=== PATIENT | male | born 1935 | race Caucasian/White ===

== ENCOUNTER 2017-04-07 19:53 | Inpatient (IN) | payer OTHER, BC ==
[~2017-04-07] VITALS: Ht 172.7 cm; Wt 78.2 kg
--- NOTE | ~2017-04-07 | HC ---
[facility] [place] [address] CONSULTATION Name: KHLOE RIZVI Rhett Room #: 447-P [facility] IN ..#: [id number] Admission: 04/07/17 Attend Phys: Alexander Barton MD Discharge: Date of : 35 Report #: [id number] THIS REPORT FOR: //name// CC: Maryam Barton REASON FOR CONSULTATION: I was asked to evaluate concerning tick exposure and possible infection. HISTORY OF PRESENT ILLNESS: The patient is an 81-year-old admitted on 04/07/2017 with the acute onset of imbalance, blurred vision on the right eye and malaise. This lasted about 30 minutes. Resolved by the time he went to the Emergency Room. In addition, he had some garbled speech. I was discussing this with nursing staff today and noted that yesterday, he had cleared and he was neurologically intact. This morning, had more symptoms with vertigo with unsteadiness. No definite vertigo. He has diplopia. He had tick exposure within the last 10 days. Pulled off a what he describes as a dog tick 6 days ago. He has had no pain or swelling in the scrotal region where the tick was implanted. He stated it came off very easy and was not even sure that it had implanted. He denied any headache. He does have mild photophobia. No pharyngitis symptoms. No rash. No adenopathy. No cough or sputum production. No chest pain. Denies nausea, vomiting, dysuria or frequency. 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 His radiation was for prostate cancer. His travel [place] 2 [place] ago having returned last week. PAST MEDICAL HISTORY: Hypertension, hyperlipidemia, anxiety disorder, insomnia, prostate cancer, radiation treatment. ALLERGIES: None known. MEDICATIONS: As noted on his MAR, was started on amoxicillin today. FAMILY HISTORY: Noncontributory. 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 REVIEW OF SYSTEMS: Noted above. PHYSICAL EXAMINATION: VITAL SIGNS: He is afebrile, hemodynamically stable. GENERAL: He is alert and cooperative, in no acute distress. SKIN: Unremarkable. LYMPHATIC: Unremarkable. EYES: Disconjugate with right eye. Pupils are equal, round and reactive to light. [address] [address] CONSULTATION Name: KHLOE RIZVI Room #: 447-P [facility] IN .R.#: [id number] Admission: 04/07/17 Attend Phys: Alexander Barton MD Discharge: Date of : 35 Report #: [id number] MOUTH: Unremarkable. NECK: Supple. LUNGS: Clear. HEART: Regular, no murmur. ABDOMEN: Soft, nontender, no hepatosplenomegaly or mass. EXTREMITIES: Unremarkable. The patient was in bed but was able to sit up without difficulty. Strength was normal. I did not get the patient up to walk. LABORATORY STUDIES: MRI scan showed deep white matter changes consistent with ischemic disease, ethmoid sinus disease. Echocardiogram was unremarkable. Carotid ultrasound, no high-grade obstruction. Chest x-ray clear. Sodium 138, potassium 4.4, bicarbonate 21, creatinine 0.9. Liver function test not done. Hemoglobin 14.9, white count 8.9, 69% segs, 16% lymphs, 10% monocytes, platelet count 183,000. IMPRESSION: Fluctuating neurologic symptoms concerning for ischemia. Not typical presentation for infection. Too soon for Lyme disease. MRI scan does not fit Lyme disease picture specifically. Other tick borne processes are considered, although systemically not ill. PLAN: Would recommend further workup to include serologic test for tick borne organisms. Also, check viral etiologies. Screen liver function tests. Await Neurology service followup. If they are not convinced this is ischemia, we then pursue a lumbar puncture. We will go with doxycycline to replace the amoxicillin started today. <ELECTRONICALLY SIGNED> By: Miguel Edwards MD 04/09/17 1551 1458 1534 Miguel Edwards MD /nt
--- NOTE | ~2017-04-07 | 2DMMODE ---
[facility] [address] [place] [address] 2 D/M-MODE ECHOCARDIOGRAM Name: KHLOE RIZVI Room #: 447-P [facility] IN .R.#: [id number] Admission: 04/07/17 Attend Phys: Mejia Osorio Discharge: Date of : 35 Date of Service: 04/08/17 1343 Report #: [id number] THIS REPORT FOR: //name// APPROVED REPORT Study performed: 04/08/2017 12:34:35 EXAM: Comprehensive 2D, Doppler, and color-flow Echocardiogram Patient Location: Echo lab Room #: [facility] Status: routine Other Information Study Quality: Adequate Indications CVA/TIA Hx: HTN, HLP Echo Enhancing Agent Indication: Rule out Shunt Agent(s) / Amount(s) Used: Agitated Saline 6 cc 2D Dimensions RVDd: 31.26 mm LVEF(%): 58.76 (>50%) IVSd: 10.69 (7-11mm) LVOT Diam: 22.22 (18-24mm) LVDd: 40.31 mm PWd: 10.17 (7-11mm) Ascending Ao: 31.95 (22-36mm) LVDs: 27.94 (25-40mm) Aortic Root: 34.56 mm Hunter's LVEF: 58.76 % Volumes Left Atrial Volume (Systole) Single Plane 4CH: 34.24 mL Single Plane 2CH: 36.54 mL LA ESV Index: 21.00 mL/m2 Aortic Valve AoV Peak Gregg.: 1.39 m/s AO Peak Gr.: 7.72 mmHg LVOT Max P.19 mmHg LVOT Max V: 0.74 m/s GEOVANNA Vmax: 2.06 cm2 Mitral Valve E/A Ratio: 0.5 [facility] [place] [address] 2 D/M-MODE ECHOCARDIOGRAM Name: KHLOE RIZVI Room #: 447-P [facility] IN .R.#: [id number] Admission: 04/07/17 Attend Phys: Mejia Osorio Discharge: Date of : 35 Date of Service: 04/08/17 1343 Report #: [id number] MV Decel. Time: 249.51 ms MV E Max Gregg.: 0.69 m/s MV A Gregg.: 1.32 m/s MV PHT: 72.36 ms IVRT: 115.34 ms Pulmonary Valve PV Peak Gregg.: 1.15 m/s PV Peak Gr.: 5.32 mmHg Pulmonary Vein P Vein S: 0.61 m/s P Vein A: 0.36 m/s P Vein D: 0.30 m/s P Vein A Dur.: 110.7 msec P Vein S/D Ratio: 2.03 Tricuspid Valve TR Peak Gregg.: 2.15 m/s RAP Estimate: 5.00 mmHg TR Peak Gr.: 18.47 mmHg PA Pressure: 23.00 mmHg Left Ventricle The left ventricle is normal size. There is normal LV segmental wall motion. There is normal left ventricular wall thickness. Left ventricular systolic function is normal. LVEF is 55-60%. Grade I - abnormal relaxation pattern. Right Ventricle The right ventricle is normal size. The right ventricular systolic function is normal. Atria The left atrium size is normal. Injection of bubbles documented no interatrial shunt. The right atrium size is normal. Aortic Valve Aortic valve is mildly calcified. Trace aortic regurgitation. There is no aortic valvular stenosis. Mitral Valve The mitral valve is normal in structure. Mild mitral annular calcification. Mild mitral regurgitation. No evidence of mitral valve stenosis. Tricuspid Valve The tricuspid valve is normal in structure. There is trace tricuspid regurgitation. The right atrial pressure is estimated at 5 mmHg. Estimated PAP is 23mmHg. [facility] [address] [place] [address] 2 D/M-MODE ECHOCARDIOGRAM Name: KHLOE RIZVI Room #: 447-P [facility] IN ..#: [id number] Admission: 04/07/17 Attend Phys: Mejia Osorio Discharge: Date of : 35 Date of Service: 04/08/17 1343 Report #: [id number] Pulmonic Valve The pulmonary valve is normal in structure. Trace pulmonic regurgitation. Great Vessels The aortic root is normal in size. The ascending aorta is normal in size. IVC is normal in size and collapses >50% with inspiration. Pericardium There is no pericardial effusion. <Conclusion> The left ventricle is normal size. LVEF is 55-60%. Aortic valve is mildly calcified. Trace aortic regurgitation. The mitral valve is normal in structure. Mild mitral annular calcification. Mild mitral regurgitation. The tricuspid valve is normal in structure. There is trace tricuspid regurgitation. The right atrial pressure is estimated at 5 mmHg. Estimated PAP is 23mmHg. <ELECTRONICALLY SIGNED> By: Devendra Todd MD 04/08/17 1343 1343 1343 Devendra Todd MD /INF
--- NOTE | ~2017-04-07 | EKG ---
[address] [address] ELECTROCARDIOGRAM REPORT Name: KHLOE RIZVI Room #: 447-P ADM IN M.R.#: [id number] Admission: 04/07/17 Attend Phys: Alexander Barton MD Discharge: Date of : 35 Report #: [id number] THIS REPORT FOR: //name// 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
[2017-04-07 20:05] VITALS: BP 160/80
[2017-04-07 20:29] LABS: ABSOLUTE NEUTROPHILS 6.2 thou/uL (1.4-8.2); BASOPHILS 1.2 % (0.0-2.0); EOSINOPHILS 1.6 % (0.0-3.0); HEMATOCRIT 43.5 % (42.0-52.0); HEMOGLOBIN 14.9 gm/dL (14.0-18.0); LYMPHOCYTES 16.9 % (24.0-44.0); MCH 31.3 pg (26.0-34.0); MCHC 34.3 g/dL (28.0-37.0); MCV 91.4 fL (80.0-100.0); MONOCYTES 10.4 % (1.0-8.0); PLATELET COUNT 183 thou/uL (150-400); POLYS 69.9 % (36.0-66.0); RBC 4.76 mil/uL (4.50-6.00); RDW 13.2 % (10.5-14.5); WBC 8.9 thou/uL (4.0-11.0)
[2017-04-07 20:30] LABS: MANUAL DIFF NO
[2017-04-07 20:35] LABS: CALCIUM 8.5 mg/dL (8.5-10.1); CREATININE 0.9 mg/dL (0.7-1.3); POTASSIUM 4.4 mmol/L (3.5-5.1)
[2017-04-07 20:44] LABS: APTT 26.8 Seconds (24.5-32.8); PROTIME 10.7 Seconds (9.3-11.4)
[2017-04-07] MEDS ORDERED: NORVASC5 MG PO (22:29)
[2017-04-07 22:30] VITALS: BP 159/79
[2017-04-07] MEDS ORDERED: PRAVACHOL20 MG PO (22:31)
[2017-04-07] MEDS ORDERED: FLOMAX0.4 MG PO (22:32)
[2017-04-07] MEDS ORDERED: AMBIEN 5 MG TABL5 M1 PO (22:33)
[2017-04-07] MEDS ORDERED: TRAMADOL 50 MG50 MG PO (22:34)
[2017-04-07] MEDS ORDERED: XANAX 0.5 MG0.5 MG PO (22:36)
[2017-04-07] MEDS ORDERED: NEXIUM40 MG PO (22:39)
[2017-04-08 03:52] VITALS: BP 141/78
[2017-04-08 06:49] LABS: CHOLESTEROL 211 mg/dL (<200); HDL CHOLESTEROL 50 mg/dL (>40); LDL CHOLESTEROL 105 mg/dL (<100); TC:HDL 4.2 Ratio (Not establshd); TRIGLYCERIDE 282 mg/dL (<150); VLDL 56 mg/dL (<40)
[2017-04-08 07:32] VITALS: BP 130/81
[2017-04-08 10:29] VITALS: BP 130/81
[2017-04-08 16:27] VITALS: BP 150/84
[2017-04-08 20:46] VITALS: BP 149/75
[2017-04-09 05:00] VITALS: BP 143/73
[2017-04-09 15:26] LABS: ALBUMIN 3.8 g/dL (3.4-5.0); DIRECT BILIRUBIN 0.2 mg/dL (<0.1-0.3); TOTAL BILIRUBIN 0.7 mg/dL (<0.1-1.0)
[2017-04-09 16:07] VITALS: BP 133/72
[2017-04-09 21:16] VITALS: BP 140/72
[2017-04-09 23:10] LABS: HIV ANTIBODY Non Reactive (Non Reactive)
[2017-04-10 04:23] VITALS: BP 128/70
[2017-04-10 04:27] LABS: HEMATOCRIT 44.8 % (42.0-52.0); HEMOGLOBIN 15.5 gm/dL (14.0-18.0); MCH 31.6 pg (26.0-34.0); MCHC 34.7 g/dL (28.0-37.0); RBC 4.92 mil/uL (4.50-6.00); RDW 13.5 % (10.5-14.5); WBC 11.5 thou/uL (4.0-11.0)
[2017-04-10 04:52] LABS: CALCIUM 8.9 mg/dL (8.5-10.1); CREATININE 0.9 mg/dL (0.7-1.3)
[2017-04-10 07:58] VITALS: BP 128/70
[2017-04-10 08:00] VITALS: BP 135/68
[2017-04-10 12:00] VITALS: BP 125/75
[2017-04-10 16:00] VITALS: BP 125/75
[2017-04-10 20:35] VITALS: BP 147/68
[2017-04-11 04:00] VITALS: BP 138/75
[2017-04-11] MEDS ORDERED: DOXYCYCLINE 10100 MG PO (07:02)
[2017-04-11] MEDS ORDERED: ASPIRIN325 PO (07:02)
[2017-04-11] MEDS ORDERED: B-12 DOTS500 MCG PO (07:14)
[2017-04-12 16:07] LABS: B.burgdorf.IgM Negative (())
[2017-04-12 17:09] LABS: B.burgdorf.IgG Negative (())
[2017-04-13 04:12] LABS: COMPLEMENT, TOTAL (CH50) 58 U/mL (42-60)
[2017-04-13 16:07] LABS: c-ANCA <1:20 titer (Neg:<1:20); p-ANCA <1:20 titer (Neg:<1:20)
[2017-04-14 16:09] LABS: A/G RATIO 1.2 (0.7-1.7); ALBUMIN 3.5 g/dL (2.9-4.4); ALPHA 1 0.3 g/dL (0.0-0.4); ALPHA 2 0.9 g/dL (0.4-1.0); BETA 0.9 g/dL (0.7-1.3); GAMMA 0.9 g/dL (0.4-1.8); M-SPIKE Not Observed g/dL (Not Observed)
[2017-04-14 18:07] LABS: ROCKY MTN SPOT FEVER IgG Equivocal (Negative); ROCKY MTN SPOT FEVER IgG IFA <1:64 (Neg <1:64)
== END 2017-04-11 08:25 | DRG 65 ==
LOC: ER 19:53 → 4S 21:08 → EROBS 21:08 → 4S 21:56
PROVIDERS: Emergency Medicine; Family Medicine; Nurse Practitioner; Psychiatry & Neurology Neurology; Specialist
DX: I63.9 Cerebral infarction, unspecified (principal); G81.91 Hemiplegia, unspecified affecting right dominant side; I10 Essential (primary) hypertension; E78.5 Hyperlipidemia, unspecified; F41.9 Anxiety disorder, unspecified; G47.00 Insomnia, unspecified; Z90.49 Acquired absence of other specified parts of digestive tract; Z85.46 Personal history of malignant neoplasm of prostate; Z92.3 Personal history of irradiation; Z87.891 Personal history of nicotine dependence; Z79.82 Long term (current) use of aspirin; Z79.899 Other long term (current) drug therapy
CPT/HCPCS: 10100

== ENCOUNTER 2018-12-28 10:22 | Emergency (ER) | payer OTHER, BC ==
[~2018-12-28] VITALS: Ht 172.7 cm; Wt 72.6 kg
[~2018-12-28 10:22] MED LIST: AMBIEN 5 MG TABL5 M1 PO; ASPIRIN325 PO; B-12 DOTS500 MCG PO; DOXYCYCLINE 10100 MG PO; FLOMAX0.4 MG PO; NEXIUM40 MG PO; NORVASC5 MG PO; PRAVACHOL20 MG PO; TRAMADOL 50 MG50 MG PO; XANAX 0.5 MG0.5 MG PO
[2018-12-28 12:41] VITALS: BP 132/74
== END 2018-12-28 12:39 | disposition home or self-care (01) ==
LOC: ER 10:22
DX: S01.112A Laceration without foreign body of left eyelid and periocular area, initial encounter (principal); I10 Essential (primary) hypertension; E78.5 Hyperlipidemia, unspecified; Z90.49 Acquired absence of other specified parts of digestive tract; W01.10XA Fall on same level from slipping, tripping and stumbling with subsequent striking against unspecified object, initial encounter; Y93.89 Activity, other specified; Y92.89 Other specified places as the place of occurrence of the external cause; Y99.8 Other external cause status

== ENCOUNTER 2019-01-02 10:48 | Emergency (ER) | payer OTHER, BC ==
[~2019-01-02] VITALS: Ht 172.7 cm; Wt 72.6 kg
[2019-01-02 12:30] VITALS: BP 142/78
== END 2019-01-02 12:05 | disposition home or self-care (01) ==
LOC: ER 10:48
DX: S01.112D Laceration without foreign body of left eyelid and periocular area, subsequent encounter (principal); I10 Essential (primary) hypertension; E78.5 Hyperlipidemia, unspecified; X58.XXXD Exposure to other specified factors, subsequent encounter; Z85.46 Personal history of malignant neoplasm of prostate

== ENCOUNTER 2019-11-15 14:13 | Inpatient (IN) | payer OTHER, BC ==
[~2019-11-15] VITALS: Ht 172.7 cm; Wt 69.1 kg
[2019-11-15 14:18] VITALS: BP 148/68
[2019-11-15 15:15] LABS: ABSOLUTE NEUTROPHILS 5.7 thou/uL (1.4-8.2); BASOPHILS 0.4 % (0.0-2.0); EOSINOPHILS 0.9 % (0.0-3.0); HEMATOCRIT 44.9 % (42.0-52.0); HEMOGLOBIN 14.8 gm/dL (14.0-18.0); LYMPHOCYTES 14.7 % (24.0-44.0); MCH 32.5 pg (26.0-34.0); MCHC 33.1 g/dL (28.0-37.0); MCV 98.2 fL (80.0-100.0); MONOCYTES 8.5 % (1.0-8.0); PLATELET COUNT 222 thou/uL (150-400); POLYS 75.5 % (36.0-66.0); RBC 4.57 mil/uL (4.50-6.00); RDW 12.9 % (10.5-14.5); WBC 7.5 thou/uL (4.0-11.0)
[2019-11-15 15:17] LABS: ANION GAP 13 mmol/L (7-16); BUN 15 mg/dL (7-18); CALCIUM 9.3 mg/dL (8.5-10.1); CHLORIDE 99 mmol/L (98-107); CO2 23 mmol/L (21-32); CREATININE 0.9 mg/dL (0.7-1.3); GLUCOSE 141 mg/dL (74-106); POTASSIUM 4.1 mmol/L (3.5-5.1); SODIUM 135 mmol/L (136-145)
[2019-11-15 15:26] LABS: TROPONIN-I <0.06 ng/mL (<0.06)
[2019-11-15 15:46] LABS: URINE BILIRUBIN NEGATIVE (Negative); URINE BLOOD NEGATIVE (Negative); URINE CLARITY CLEAR; URINE COLOR YELLOW; URINE GLUCOSE-RANDOM* NEGATIVE (Negative); URINE KETONES NEGATIVE (Negative); URINE LEUKOCYTES-REFLEX NEGATIVE (Negative); URINE NITRITE-REFLEX NEGATIVE (Negative); URINE PROTEIN (DIPSTICK) NEGATIVE (Negative); URINE SPECIFIC GRAVITY <= 1.005 (1.005-1.035); URINE UROBILINOGEN 0.2 E.U./dl (0.2-1.0)
[2019-11-15 18:12] VITALS: BP 148/79
--- NOTE | 2019-11-15 18:16 | NUR ---
FIRST ATTEMPT REPORT AT 1814
--- NOTE | 2019-11-15 18:35 | NUR ---
SECOND ATTEMPT REPORT AT 1833
[2019-11-15 19:05] VITALS: BP 154/82
[2019-11-16 00:24] VITALS: BP 129/63
--- NOTE | 2019-11-16 03:46 | NUR ---
PT ARRIVED AT THE UNIT VIA A WHEELCHAIR AROUND 1900, PT IS A&OX4, DENIES CHEST PAIN AND SOB, ADMISSION ASSESSMENTS DONE AND CHARTED, PT IS SR ON THE MONITOR, PT IS ON ROOM AIR, VITAL SIGNS STABLE, STATES THAT HE IS FEELING BETTER, NIH SCALE CHARTED, SLEEPING AT THIS TIME, WILL CONTINUE TO MONITOR
[2019-11-16 04:11] LABS: GLYCOHEMOGLOBIN (HGB A1C) 5.3 % (4.8-5.6)
[2019-11-16 05:10] VITALS: BP 128/76
[2019-11-16 06:11] LABS: ABSOLUTE NEUTROPHILS 5.2 thou/uL (1.4-8.2); BASOPHILS 0.5 % (0.0-2.0); EOSINOPHILS 2.2 % (0.0-3.0); HEMATOCRIT 44.1 % (42.0-52.0); HEMOGLOBIN 14.8 gm/dL (14.0-18.0); LYMPHOCYTES 13.8 % (24.0-44.0); MCH 33.1 pg (26.0-34.0); MCHC 33.5 g/dL (28.0-37.0); MONOCYTES 9.7 % (1.0-8.0); PLATELET COUNT 210 thou/uL (150-400); POLYS 73.8 % (36.0-66.0); RBC 4.45 mil/uL (4.50-6.00)
[2019-11-16 06:15] LABS: CALCIUM 8.9 mg/dL (8.5-10.1); CREATININE 0.9 mg/dL (0.7-1.3); MAGNESIUM 2.1 mg/dL (1.8-2.4)
[2019-11-16 06:34] LABS: CHOLESTEROL 172 mg/dL (<200); HDL CHOLESTEROL 67 mg/dL (>40); LDL CHOLESTEROL 65 mg/dL (<100); TC:HDL 2.6 Ratio (Not establshd); TRIGLYCERIDE 203 mg/dL (<150); VLDL 41 mg/dL (<40)
[2019-11-16 06:36] LABS: SERUM ASSESSMENT Clear
[2019-11-16 07:30] VITALS: BP 147/74
--- NOTE | 2019-11-16 09:53 | NUR ---
Pt seen for high risk screening. Admit with stroke-like symptoms including slurred speech, unsteady gait, weakness. Hx TIA, arthritis, partial colon resection. Described intentional 25# weight loss using [employer] in 2018 and has been stable around 155# for at least the past 3 months. Weight hx shows decrease from 160# on 01/02/19 to 152# on 11/15/19. This is 8# or 5% in 10 months intentionally. Reports eating 2 larger meals per day, choosing low-fat yogurt and dairy products, and 3-4 servings of fruits/vegetables per day. Described appetite as good-fair. Used to exercise at [employer] 3x per week but has had spine pain past 6 months which has limited his activity. States he has less of an appetite due to less activity. Had consumed 80% of breakfast today. Consider low nutrition risk at this time.
[2019-11-16 11:30] VITALS: BP 132/70
--- NOTE | 2019-11-16 14:10 | 2DMMODE ---
[facility] [place] [address] 2 D/M-MODE ECHOCARDIOGRAM Name: KHLOE RIZVI Room #: 213-P ADM IN M.R.#: [id number] Admission: 11/15/19 Attend Phys: Clinton Alvarado MD Discharge: Date of : 35 Report #: [id number] THIS REPORT FOR: cc: FAM - No family physician/PCP FAM - No family physician/PCP Yamil Marks MD ~ APPROVED REPORT Study performed: 11/16/2019 13:00:57 EXAM: Comprehensive 2D, Doppler, and color-flow Echocardiogram Patient Location: Bedside Room #: 213 Status: routine BSA: 1.82 HR: 80 bpm BP: 147/74 mmHg Rhythm: NSR Other Information Study Quality: Adequate Indications Stroke. 2D Dimensions RVDd: 31.03 mm IVSd: 12.00 (7-11mm) LVOT Diam: 21.03 (18-24mm) LVDd: 44.00 mm PWd: 11.00 (7-11mm) Ascending Ao: 35.16 (22-36mm) LVDs: 32.28 (25-40mm) Aortic Root: 35.09 mm Volumes Left Atrial Volume (Systole) Single Plane 4CH: 26.63 mL Single Plane 2CH: 30.64 mL LA ESV Index: 17.00 mL/m2 Aortic Valve AoV Peak Gregg.: 1.42 m/s AO Peak Gr.: 8.11 mmHg LVOT Max P.64 mmHg LVOT Max V: 0.95 m/s GEOVANNA Vmax: 2.33 cm2 [facility] [address] [place] [address] 2 D/M-MODE ECHOCARDIOGRAM Name: BELKYSKHLOE Rhett Room #: 213-P ADM IN M.R.#: [id number] Admission: 11/15/19 Attend Phys: Clinton Alvarado MD Discharge: Date of : 35 Report #: [id number] Mitral Valve E/A Ratio: 0.7 MV Decel. Time: 262.98 ms MV E Max Gregg.: 0.79 m/s MV A Gregg.: 1.21 m/s MV PHT: 76.26 ms IVRT: 121.11 ms Pulmonary Valve PV Peak Gregg.: 1.05 m/s PV Peak Gr.: 4.42 mmHg Pulmonary Vein P Vein S: 0.54 m/s P Vein A: 0.33 m/s P Vein D: 0.32 m/s P Vein A Dur.: 79.6 msec P Vein S/D Ratio: 1.69 Tricuspid Valve TR Peak Gregg.: 2.24 m/s RAP Estimate: 5.00 mmHg TR Peak Gr.: 20.10 mmHg PA Pressure: 25.00 mmHg Left Ventricle The left ventricle is normal size. There is normal LV segmental wall motion. Mild concentric left ventricular hypertrophy. Left ventricular systolic function is normal. LVEF is 55-60%. Mild diastolic dysfunction is present (impaired relaxation pattern). Right Ventricle The right ventricle is normal size. The right ventricular systolic function is normal. Atria The left atrium size is normal. The right atrium size is normal. Aortic Valve The Aortic valve is mildly sclerotic. Trace aortic regurgitation. There is no aortic valvular stenosis. Mitral Valve Moderate mitral annular calcification. Mild mitral regurgitation. No evidence of mitral valve stenosis. Tricuspid Valve The tricuspid valve is normal in structure. Trace tricuspid [facility] [address] [address] 2 D/M-MODE ECHOCARDIOGRAM Name: BELKYSKHLOE Rhett Room #: 213-P [facility] IN M.R.#: [id number] Admission: 11/15/19 Attend Phys: Clinton Alvarado MD Discharge: Date of : 35 Report #: [id number] regurgitation. Estimated PAP is 25mmHg. Pulmonic Valve The pulmonary valve is normal in structure. Mild pulmonic regurgitation. Great Vessels The aortic root is normal in size. The ascending aorta is normal in size. IVC is normal in size and collapses >50% with inspiration. Pericardium There is no pericardial effusion. <Conclusion> The left ventricle is normal size. Mild concentric left ventricular hypertrophy. Left ventricular systolic function is normal. Mild diastolic dysfunction is present (impaired relaxation pattern). The right ventricle is normal size. The left atrium size is normal. The Aortic valve is mildly sclerotic. Moderate mitral annular calcification. Mild mitral regurgitation. Trace tricuspid regurgitation. Estimated PAP is 25mmHg. <ELECTRONICALLY SIGNED> By: Yamil Marks MD 11/16/191408 08 08 Yamil Marks MD /INF
--- NOTE | 2019-11-16 14:35 | NUR ---
PT LEFT AMA. IV LINE D/C. DISABILITY EXAMINER NOTIFIED. DR. AUBREE TANG.
--- NOTE | 2019-11-16 15:24 | NUR ---
Pt dc'd to home AMA today via uber. Case discussed with the care team and the attending. Pt admitted with cva and was recommended to have a short inpt rehab stay or HH RN,PT,OT, and ST or outpt therapy followup due to deficits. NO driving recommended and well as cognitive testing. Pt noted to have poor insight and poor saftey awareness. The pt lives alone and drives. He has a cane but was not using it prior to admission. He has a few steps to enter his home and can stay on the main level. He has 12 steps down to the basement. He has a senior ios developer 2xmonthly. Pt's son Kwan noted as contact, spokesperson, and dpoa. Pt hotlined due to AMA discharge and concerns about him being at home alone, possibly driving and need for f/u care. Pt's son Kwan notified of above and he indicates he is on his way to and will be here to check on pt in an hour or so. The attending also spoke with Ute, the pt's dtr in law as well. Pt's son will try to get the pt in to see his pcp tomorrow and work with the pt to arrange for more support, supervision and transport to help him maintain living in his home as well as to access f/u therapy. Resources provided.
--- NOTE | 2019-11-17 09:10 | EKG ---
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1935 Requested By: Brenden Wood Order Number: [id number] MD: Naren Cee Measurements Intervals [place] Rate: 74 P: 26 NM: 159 QRS: 3 QRSD: 98 T: 30 QT: 383 QTc: 425 Interpretive Statements Sinus rhythm Atrial premature complex Abnormal R-wave progression, early transition Baseline wander in lead(s) V2 Compared to ECG 04/07/2017 20:04:30 Atrial premature complex(es) now present Electronically Signed On 11-17-2019 9:09:01 PRODUCTION HELPER by Naren Cee [email or web address] <ELECTRONICALLY SIGNED> By: Naren Cee MD, FAC 11/17/19 0909 1446 1446 Naren Cee MD, FACC /EPI
--- NOTE | 2019-11-17 17:22 | NUR ---
CALL REC'D FROM THE PT'S SON ARIEL REQUESTING REFERRAL FOR ACUTE REHAB BE FAXED TO [facility] IN [facility] WHERE PT HAD GONE AFTER A PREVIOUS STROKE. REFERRAL FAXED TO [phone] FOR POSSIBLE ADMISSION TODAY OR TOMORROW. ARIEL STATES THE PT IS AGREEABLE AND THEY TAKING HIM BACK TO [facility] WITH THEM.
== END 2019-11-16 14:11 | disposition left against medical advice (07) | DRG 65 ==
LOC: ER 14:13 → EROBS 17:31 → 2N 17:31
PROVIDERS: Emergency Medicine; Nurse Practitioner; ADMIT Internal Medicine
DX: I63.9 Cerebral infarction, unspecified (principal); G81.91 Hemiplegia, unspecified affecting right dominant side; I10 Essential (primary) hypertension; E78.5 Hyperlipidemia, unspecified; N40.0 Benign prostatic hyperplasia without lower urinary tract symptoms; Z60.2 Problems related to living alone; E53.8 Deficiency of other specified B group vitamins; R63.4 Abnormal weight loss; G47.00 Insomnia, unspecified; I67.9 Cerebrovascular disease, unspecified; R41.9 Unspecified symptoms and signs involving cognitive functions and awareness; R47.1 Dysarthria and anarthria; Z53.29 Procedure and treatment not carried out because of patient's decision for other reasons; Z91.19 Patient's noncompliance with other medical treatment and regimen; Z80.0 Family history of malignant neoplasm of digestive organs; Z85.46 Personal history of malignant neoplasm of prostate; Z92.3 Personal history of irradiation; Z87.891 Personal history of nicotine dependence; Z79.82 Long term (current) use of aspirin; Z79.899 Other long term (current) drug therapy; Z82.5 Family history of asthma and other chronic lower respiratory diseases; Z72.89 Other problems related to lifestyle; Z68.23 Body mass index [BMI] 23.0-23.9, adult
CPT/HCPCS: 10081